=== PATIENT | male | born 1985 | race African-American/Black ===

== ENCOUNTER 2019-02-08 12:25 | Emergency (ER) | payer SELFPAY ==
--- NOTE | 2019-02-08 14:18 | ER Document Report ---
ED Medical Screen (RME) - General Chief Complaint: Knee Pain Stated Complaint: ANKLE INJURY Time Seen by Provider: 02/08/19 14:13 Mode of Arrival: Wheelchair Information source: Patient Notes: 33-year-old male presents to ED for complaint of right knee pain. He states he injured it skateboarding either yesterday or the day before. He states it is painful. Patient is alert and oriented is able to walk on the knee but he is limping. Patient is alert oriented respirations regular and unlabored speaking in full sentences. He states he also needs a refill on his clonazepam. He got a prescription for 8 pills on the and the instructions were to take twice a day. He states that in [place] on his regime he was taken 3 times a day so he has been taken 3 times a day. He states he has not yet got a mental health provider and [place] for his refills. He states he is going back to [place] in the next 3 or 4 days. He said he has had 1 dose of clonazepam at 5 AM and 1 at 9 30-10 aM today I have greeted and performed a rapid initial assessment of this patient. A comprehensive ED assessment and evaluation of the patient, analysis of test results and completion of medical decision making process will be conducted by an additional ED providers. TRAVEL OUTSIDE OF THE [place] IN LAST 30 DAYS: No - Related Data Allergies/Adverse Reactions: No Known Allergies Allergy (Verified 02/08/19 13:51) Home Medications: clonipin Past Medical History - Social History Chew tobacco use (# tins/day): No Frequency of alcohol use: Occasional Drug Abuse: None Physical Exam - Vital signs Vitals: Temp Pulse Resp BP Pulse Ox 97.8 F 94 18 137/67 H 98 02/08/19 13:21 02/08/19 13:21 02/08/19 13:21 02/08/19 13:21 02/08/19 13:21 Course - Vital Signs Vital signs: Temp Pulse Resp BP Pulse Ox 97.8 F 94 18 137/67 H 98 02/08/19 13:21 02/08/19 13:21 02/08/19 13:21 02/08/19 13:21 02/08/19 13:21
--- NOTE | 2019-02-08 14:40 | RADIOLOGY REPORT (SQ) ---
EXAM DESCRIPTION: KNEE RIGHT 4 VIEWS COMPLETED DATE/TIME: 02/08/2019 2:30 pm REASON FOR STUDY: fall injury to right knee COMPARISON: None. NUMBER OF VIEWS: Four views. TECHNIQUE: AP, lateral, and both oblique radiographic images acquired of the right knee. LIMITATIONS: None. FINDINGS: MINERALIZATION: Normal. BONES: No acute fracture or dislocation. No worrisome bone lesions. JOINT: No effusion. SOFT TISSUES: No soft tissue swelling. No radio-opaque foreign body. OTHER: No other significant finding. IMPRESSION: NEGATIVE STUDY OF THE RIGHT KNEE. NO RADIOGRAPHIC EVIDENCE OF ACUTE INJURY. TECHNICAL DOCUMENTATION: JOB ID: [id number] All Rights Reserved Reading location - IP/workstation name: [email or web address]
[2019-02-08 14:48] LABS: APPEARANCE,URINE CLEAR; BILIRUBIN,URINE NEGATIVE (NEGATIVE); COLOR,URINE COLORLESS; GLUCOSE, URINE NEGATIVE (NEGATIVE); KETONES,URINE NEGATIVE (NEGATIVE); PROTEIN,URINE NEGATIVE (NEGATIVE); URINE SPECIFIC GRAVITY 1.002; UROBILINOGEN,URINE NEGATIVE mg/dL (<2.0)
[2019-02-08 15:12] LABS: URINE AMPHETAMINES SCREEN NEGATIVE; URINE BARBITURATES SCREEN NEGATIVE; URINE BENZODIAZEPINES SCREEN NEGATIVE; URINE COCAINE SCREEN NEGATIVE; URINE MARIJUANA (THC) SCREEN NEGATIVE; URINE METHADONE SCREEN NEGATIVE; URINE PHENCYCLIDINE SCREEN NEGATIVE
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
[2019-02-08 15:50] VITALS: BP 134/69
== END 2019-02-08 15:46 | disposition home or self-care (01) ==
LOC: ER 12:25
DX: M25.562 Pain in left knee (principal); F17.200 Nicotine dependence, unspecified, uncomplicated
CPT/HCPCS: 80307; 81001; 99283